=== PATIENT | male | born 1990 | race Caucasian/White ===

== ENCOUNTER 2024-01-12 16:08 | Emergency (ER) | payer BC ==
[~2024-01-12] VITALS: Ht 175.3 cm; Wt 127.0 kg
[2024-01-12] MEDS ORDERED: SODIUM CHLORIDE 0.9% 250ML 250 ML IV ONE (16:15)
[2024-01-12 16:46] LABS: BASOPHILS # (AUTO) 0.1 (0.0-0.1); BASOPHILS % 0.5 % (0.0-1.0); EOSINOPHILS # (AUTO) 0.2 (0.0-0.4); EOSINOPHILS % 0.9 % (0.0-6.0); HEMATOCRIT 39.7 % (38.2-49.6); HEMOGLOBIN 13.7 g/dL (14.0-18.0); LYMPHOCYTES # (AUTO) 4.1 (1.0-3.2); LYMPHOCYTES % 21.7 % (18.0-39.1); MEAN CORPUSCULAR HGB CONC 34.5 g/dL (31-35); MEAN CORPUSCULAR VOLUME 89.8 fL (81-99); MONOCYTES # (AUTO) 1.1 (0.2-0.8); MONOCYTES % 5.6 % (4.4-11.3); NEUTROPHILS # (AUTO) 13.4 (2.1-6.9); NEUTROPHILS % 70.6 % (38.7-80.0); PLATELET COUNT 458 x10e3/uL (140-360); RED BLOOD COUNT 4.42 x10e6/uL (4.3-5.7); RED CELL DISTRIBUTION WIDTH 11.9 % (11.7-14.4); WHITE BLOOD COUNT 18.97 x10e3/uL (4.8-10.8)
[2024-01-12 16:55] LABS: INR 0.97; PROTHROMBIN TIME 13.4 seconds (11.9-14.5)
[2024-01-12 16:56] LABS: PARTIAL THROMBOPLASTIN TIME 31.2 seconds (23.8-35.5)
[2024-01-12 17:05] LABS: ALBUMIN 4.2 g/dL (3.5-5.0); BILIRUBIN,TOTAL 0.4 mg/dL (0.2-1.2); CALCIUM 9.9 mg/dL (8.4-10.2); CREATININE, SERUM 0.93 mg/dL (0.72-1.25); TOTAL PROTEIN 8.5 g/dL (6.5-8.1)
[2024-01-12] MEDS ORDERED: SODIUM CHLORIDE 0.9% 1000ML 1,000 ML IV ONE (17:15)
[2024-01-12] MEDS: ONDANSETRON HCL INJ 2MG/ML 2ML 2 MG/ML VIAL IV STA (18:13)
[2024-01-12] MEDS: SODIUM CHLORIDE 0.9% 1000ML 1,000 ML IV ONE (18:13)
[2024-01-12 19:06] VITALS: TEMP 98.8
[2024-01-12 19:51] VITALS: PULSE 132; RESP 20; O2SAT 98
== END 2024-01-12 19:50 | disposition other institution (70) ==
LOC: ER 16:14
DX: J95.831 Postprocedural hemorrhage of a respiratory system organ or structure following other procedure (principal); R04.0 Epistaxis; D62 Acute posthemorrhagic anemia
CPT/HCPCS: 36415; 80053; 85025; 85610; 85730; 86850; 86900; 86920; 93005; 99284; J2405; J7030; J7050; P9016